=== PATIENT | male | born 1990 | race Caucasian/White ===

== ENCOUNTER 2017-08-07 14:48 | Emergency (ER) | payer SELFPAY ==
[~2017-08-07] VITALS: Ht 180.3 cm; Wt 67.1 kg
[2017-08-07 14:59] VITALS: Ht 180.3 cm; Wt 67.1 kg
[2017-08-07 16:47] VITALS: BP 110/64
== END 2017-08-07 16:47 | disposition home or self-care (01) ==
LOC: ED 14:48
DX: F41.9 Anxiety disorder, unspecified (principal); K58.9 Irritable bowel syndrome, unspecified; F12.10 Cannabis abuse, uncomplicated